=== PATIENT | male | born 1945 | race Caucasian/White ===

== ENCOUNTER 2017-07-17 03:54 | Inpatient (IN) | payer OTHER ==
[~2017-07-17] VITALS: Ht 182.9 cm; Wt 87.4 kg
[~2017-07-17 03:54] MED LIST: ASCO500 PO; ASPI81CH; ATOR40TA; ATOR40TA PO; Aldactone25 MG PO; CENTRUM ULTRA1 EAC1 PO; CEPH500 PO; CLON.1 PO; CLOP75 PO; Cinnamon500 MG PO; ENAL20; ENAL20 PO; FURO40; FURO40 PO; HYDACE5325 PO; LANS15EC; LEVFLO500 PO; METF500; METF500C PO; MULVITMINF PO; NIFE90ER; NIFE90ER PO; ODOR FREE GARL100 MG PO; OMEG1CAP30 PO; PANT40 PO; POTCHL20ER; PRED10 PO; Percocet 5-3251 EACH PO; SPIR25 PO; TIMOPTIC 0.5%1 EACH BOTHEYES; Vitamin B-121000 MCG PO; Xalatan2.5 ML BOTHEYES; ZIOPTAN 0.00151 EACH
[2017-07-17 05:08] LABS: BASOPHILS ABSOLUTE AUTO 0.05 K/mm3 (0.00-0.23); BASOPHILS PERCENT AUTO 0 % (0-2); EOSINOPHILS ABSOLUTE AUTO 0.02 K/mm3 (0.00-0.68); EOSINOPHILS PERCENT AUTO 0 % (0-6); Hematocrit 42.9 % (37.0-53.0); Hemoglobin 14.8 g/dL (13.5-17.5); IMMATURE GRAN ABSOLUTE AUTO 0.27 K/mm3 (0.00-0.10); IMMATURE GRAN PERCENT AUTO 1 % (0-1); LYMPHOCYTES PERCENT AUTO 7 % (21-46); MONOCYTES ABSOLUTE AUTO 1.88 K/mm3 (0.16-1.47); MONOCYTES PERCENT AUTO 8 % (4-13); Mean Corpuscular HGB 31.9 pg (26.0-34.0); Mean Corpuscular HGB Conc 34.5 g/dL (31.5-36.5); Mean Corpuscular Volume 93 fL (80-100); Mean Platelet Volume 10.1 fL (9.1-12.4); NEUTROPHILS PERCENT AUTO 84 % (41-73); Platelet Count 284 K/mm3 (150-400); RDW Coefficient Variation 12.5 % (11.7-14.2); RDW Standard Deviation 42.3 fL (35.1-46.3); Red Blood Cell Count 4.64 M/mm3 (4.30-5.90); White Blood Cell Count 23.92 K/mm3 (4.00-11.30)
[2017-07-17 05:55] LABS: CHOL/HDL RATIO 3.3; Cholesterol 124 mg/dL (50-200); HDL Cholesterol 38 mg/dL (>39); LDL/HDL RATIO 1.4; Low Density Lipoprotein Chol 55 mg/dL (0-110); Triglycerides 156 mg/dL (30-160); Very Low Density Lipoprot Chol 31 mg/dL (6-32)
[2017-07-17 06:08] LABS: Alanine Aminotransfer (ALT/SGP 60 U/L (12-78); Albumin, Blood 4.2 g/dL (3.4-5.0); Alk Phos 75 U/L (50-136); Anion Gap 9 mmol/L (6-16); Aspartate Aminotrans (AST/SGOT 23 U/L (12-37); Bilirubin, Total 0.8 mg/dL (0.1-1.0); Blood Urea Nitrogen 28 mg/dL (8-24); Bun/Creatinine Ratio 26.4 (12.0-20.0); CO2, Blood 25 mmol/L (21-32); Calcium, Blood 9.4 mg/dL (8.5-10.1); Chloride, Blood 106 mmol/L (98-108); Creatinine, Blood 1.06 mg/dL (0.60-1.20); Globulin, Blood 4.3 g/dL (2.2-4.0); Glomerular Filtration Rate >60 (60-); Glucose, Blood 159 mg/dL (70-99); Sodium, Blood 140 mmol/L (136-145); Total Protein, Blood 8.5 g/dL (6.4-8.2)
[2017-07-17 06:44] LABS: Source, Urine Clean Catch
[2017-07-17 06:50] LABS: Bilirubin, Urine Neg (Neg); Blood, Urine 3+ (Neg); Glucose Qualitative, Urine 1+ (Neg); Ketones, Urine 2+ (Neg); Leukocyte Esterase, Urine Neg (Neg); Nitrite, Urine Neg (Neg); Protein, Urine 1+ (Neg); Specific Gravity, Urine 1.025 (1.003-1.022); Urobilinogen, Urine NORM (Normal)
[2017-07-17 06:58] LABS: Appearance, Urine Clear (Clear); Color, Urine Yellow (P-Yellow)
[2017-07-17 07:00] LABS: Bacteria Not Seen /hpf; Red Blood Cells, Urine 0-2 /hpf (0-2); Squamous Epithelial Cells Not Seen /hpf (Few); White Blood Cells, Urine Not Seen /hpf (0-5)
[2017-07-18 05:31] LABS: BASOPHILS ABSOLUTE AUTO 0.02 K/mm3 (0.00-0.23); BASOPHILS PERCENT AUTO 0 % (0-2); EOSINOPHILS ABSOLUTE AUTO 0.01 K/mm3 (0.00-0.68); EOSINOPHILS PERCENT AUTO 0 % (0-6); Hematocrit 40.8 % (37.0-53.0); IMMATURE GRAN ABSOLUTE AUTO 0.21 K/mm3 (0.00-0.10); IMMATURE GRAN PERCENT AUTO 1 % (0-1); LYMPHOCYTES ABSOLUTE AUTO 1.84 K/mm3 (0.84-5.20); LYMPHOCYTES PERCENT AUTO 8 % (21-46); MONOCYTES ABSOLUTE AUTO 1.35 K/mm3 (0.16-1.47); MONOCYTES PERCENT AUTO 6 % (4-13); Mean Corpuscular HGB 31.7 pg (26.0-34.0); Mean Corpuscular HGB Conc 34.3 g/dL (31.5-36.5); Mean Corpuscular Volume 93 fL (80-100); NEUTROPHILS ABSOLUTE AUTO 19.13 K/mm3 (1.96-9.15); NEUTROPHILS PERCENT AUTO 85 % (41-73); RDW Coefficient Variation 13.1 % (11.7-14.2); RDW Standard Deviation 44.3 fL (35.1-46.3); Red Blood Cell Count 4.41 M/mm3 (4.30-5.90); White Blood Cell Count 22.56 K/mm3 (4.00-11.30)
[2017-07-18 05:33] LABS: Mean Platelet Volume 10.8 fL (9.1-12.4); Platelet Count 240 K/mm3 (150-400)
[2017-07-18 06:03] LABS: Alanine Aminotransfer (ALT/SGP 34 U/L (12-78); Albumin, Blood 3.3 g/dL (3.4-5.0); Albumin/Globulin Ratio 0.8 (0.8-1.8); Alk Phos 64 U/L (50-136); Anion Gap 9 mmol/L (6-16); Aspartate Aminotrans (AST/SGOT 23 U/L (12-37); Bilirubin, Total 0.8 mg/dL (0.1-1.0); Blood Urea Nitrogen 22 mg/dL (8-24); Bun/Creatinine Ratio 25.6 (12.0-20.0); CO2, Blood 24 mmol/L (21-32); Calcium, Blood 8.6 mg/dL (8.5-10.1); Chloride, Blood 107 mmol/L (98-108); Creatinine, Blood 0.86 mg/dL (0.60-1.20); Globulin, Blood 4.1 g/dL (2.2-4.0); Glomerular Filtration Rate >60 (60-); Glucose, Blood 152 mg/dL (70-99); Phosphorus, Blood 2.2 mg/dL (2.5-4.9); Potassium, Blood 3.8 mmol/L (3.5-5.5); Sodium, Blood 140 mmol/L (136-145); Total Protein, Blood 7.4 g/dL (6.4-8.2)
[2017-07-19 04:11] LABS: BASOPHILS ABSOLUTE AUTO 0.02 K/mm3 (0.00-0.23); BASOPHILS PERCENT AUTO 0 % (0-2); EOSINOPHILS ABSOLUTE AUTO 0.01 K/mm3 (0.00-0.68); EOSINOPHILS PERCENT AUTO 0 % (0-6); Hematocrit 36.1 % (37.0-53.0); Hemoglobin 12.1 g/dL (13.5-17.5); IMMATURE GRAN ABSOLUTE AUTO 0.28 K/mm3 (0.00-0.10); IMMATURE GRAN PERCENT AUTO 2 % (0-1); LYMPHOCYTES ABSOLUTE AUTO 1.52 K/mm3 (0.84-5.20); LYMPHOCYTES PERCENT AUTO 8 % (21-46); MONOCYTES PERCENT AUTO 6 % (4-13); Mean Corpuscular HGB 31.6 pg (26.0-34.0); Mean Corpuscular HGB Conc 33.5 g/dL (31.5-36.5); Mean Corpuscular Volume 94 fL (80-100); Mean Platelet Volume 10.8 fL (9.1-12.4); NEUTROPHILS ABSOLUTE AUTO 15.72 K/mm3 (1.96-9.15); NEUTROPHILS PERCENT AUTO 84 % (41-73); Platelet Count 242 K/mm3 (150-400); RDW Coefficient Variation 13.1 % (11.7-14.2); RDW Standard Deviation 45.2 fL (35.1-46.3); Red Blood Cell Count 3.83 M/mm3 (4.30-5.90); White Blood Cell Count 18.65 K/mm3 (4.00-11.30)
[2017-07-19 04:38] LABS: Anion Gap 10 mmol/L (6-16); Blood Urea Nitrogen 23 mg/dL (8-24); Bun/Creatinine Ratio 25.2 (12.0-20.0); CO2, Blood 24 mmol/L (21-32); Calcium, Blood 8.5 mg/dL (8.5-10.1); Chloride, Blood 108 mmol/L (98-108); Creatinine, Blood 0.91 mg/dL (0.60-1.20); Glomerular Filtration Rate >60 (60-); Glucose, Blood 161 mg/dL (70-99); Phosphorus, Blood 1.6 mg/dL (2.5-4.9); Potassium, Blood 3.2 mmol/L (3.5-5.5); Sodium, Blood 142 mmol/L (136-145)
[2017-07-20 05:04] LABS: BASOPHILS ABSOLUTE AUTO 0.02 K/mm3 (0.00-0.23); BASOPHILS PERCENT AUTO 0 % (0-2); EOSINOPHILS ABSOLUTE AUTO 0.03 K/mm3 (0.00-0.68); EOSINOPHILS PERCENT AUTO 0 % (0-6); Hematocrit 34.3 % (37.0-53.0); Hemoglobin 11.6 g/dL (13.5-17.5); IMMATURE GRAN ABSOLUTE AUTO 0.18 K/mm3 (0.00-0.10); IMMATURE GRAN PERCENT AUTO 1 % (0-1); LYMPHOCYTES ABSOLUTE AUTO 1.67 K/mm3 (0.84-5.20); LYMPHOCYTES PERCENT AUTO 11 % (21-46); MONOCYTES PERCENT AUTO 6 % (4-13); Mean Corpuscular HGB 31.1 pg (26.0-34.0); Mean Corpuscular HGB Conc 33.8 g/dL (31.5-36.5); Mean Corpuscular Volume 92 fL (80-100); Mean Platelet Volume 10.5 fL (9.1-12.4); NEUTROPHILS ABSOLUTE AUTO 12.87 K/mm3 (1.96-9.15); NEUTROPHILS PERCENT AUTO 82 % (41-73); Platelet Count 231 K/mm3 (150-400); RDW Coefficient Variation 12.9 % (11.7-14.2); RDW Standard Deviation 43.2 fL (35.1-46.3); Red Blood Cell Count 3.73 M/mm3 (4.30-5.90); White Blood Cell Count 15.77 K/mm3 (4.00-11.30)
[2017-07-20 05:23] LABS: Albumin, Blood 2.9 g/dL (3.4-5.0); Anion Gap 10 mmol/L (6-16); Blood Urea Nitrogen 18 mg/dL (8-24); Bun/Creatinine Ratio 23.5 (12.0-20.0); CO2, Blood 22 mmol/L (21-32); Calcium, Blood 8.6 mg/dL (8.5-10.1); Chloride, Blood 112 mmol/L (98-108); Creatinine, Blood 0.77 mg/dL (0.60-1.20); Glomerular Filtration Rate >60 (60-); Glucose, Blood 157 mg/dL (70-99); Phosphorus, Blood 1.7 mg/dL (2.5-4.9); Potassium, Blood 3.2 mmol/L (3.5-5.5); Sodium, Blood 144 mmol/L (136-145)
[2017-07-21 05:57] LABS: Anion Gap 8 mmol/L (6-16); Blood Urea Nitrogen 15 mg/dL (8-24); Bun/Creatinine Ratio 23.3 (12.0-20.0); CO2, Blood 23 mmol/L (21-32); Calcium, Blood 8.4 mg/dL (8.5-10.1); Chloride, Blood 111 mmol/L (98-108); Creatinine, Blood 0.64 mg/dL (0.60-1.20); Glomerular Filtration Rate >60 (60-); Glucose, Blood 155 mg/dL (70-99); Potassium, Blood 3.1 mmol/L (3.5-5.5); Sodium, Blood 142 mmol/L (136-145)
[2017-07-21] MEDS ORDERED: CREON DR 12,001 EACH PO (10:05)
== END 2017-07-21 13:05 | disposition home or self-care (01) | DRG 440 ==
LOC: ER 03:54 → MEDS 05:13
PROVIDERS: Emergency Medicine; Family Medicine; Internal Medicine
DX: K85.20 Alcohol induced acute pancreatitis without necrosis or infection (principal); E87.6 Hypokalemia; E11.9 Type 2 diabetes mellitus without complications; I10 Essential (primary) hypertension; M10.9 Gout, unspecified; H40.9 Unspecified glaucoma; I48.0 Paroxysmal atrial fibrillation; F10.20 Alcohol dependence, uncomplicated; D72.829 Elevated white blood cell count, unspecified; K21.9 Gastro-esophageal reflux disease without esophagitis; E78.5 Hyperlipidemia, unspecified; Z79.84 Long term (current) use of oral hypoglycemic drugs; Z79.02 Long term (current) use of antithrombotics/antiplatelets; Z79.899 Other long term (current) drug therapy; Z87.891 Personal history of nicotine dependence
CPT/HCPCS: 36415; 71046; 74176; 80048; 80053; 80061; 80069; 81001; 82947; 83690; 84100; 85025; 87040; 94762; 96361; 96374; 96375; 99285; J1650; J2405; J2543; J3010; J3480; J7030

== ENCOUNTER 2019-06-03 11:15 | Inpatient (IN) | payer OTHER ==
[~2019-06-03] VITALS: Ht 170.2 cm; Wt 85.7 kg
[~2019-06-03 11:15] MED LIST changes: -ATOR40TA PO; -Aldactone25 MG PO; +CREON DR 12,001 EACH PO; -ENAL20 PO; -METF500C PO; -NIFE90ER PO; -TIMOPTIC 0.5%1 EACH BOTHEYES; -Xalatan2.5 ML BOTHEYES
[2019-06-03 12:03] LABS: BASOPHILS ABSOLUTE AUTO 0.03 K/mm3 (0.00-0.23); BASOPHILS PERCENT AUTO 0 % (0-2); EOSINOPHILS ABSOLUTE AUTO 0.02 K/mm3 (0.00-0.68); EOSINOPHILS PERCENT AUTO 0 % (0-6); Hematocrit 46.7 % (37.0-53.0); Hemoglobin 15.4 g/dL (13.5-17.5); IMMATURE GRAN ABSOLUTE AUTO 0.04 K/mm3 (0.00-0.10); IMMATURE GRAN PERCENT AUTO 0 % (0-1); LYMPHOCYTES ABSOLUTE AUTO 0.73 K/mm3 (0.84-5.20); LYMPHOCYTES PERCENT AUTO 5 % (21-46); MONOCYTES ABSOLUTE AUTO 0.86 K/mm3 (0.16-1.47); MONOCYTES PERCENT AUTO 5 % (4-13); Mean Corpuscular HGB 31.2 pg (26.0-34.0); Mean Corpuscular Volume 95 fL (80-100); Mean Platelet Volume 9.9 fL (9.1-12.4); NEUTROPHILS ABSOLUTE AUTO 14.21 K/mm3 (1.96-9.15); NEUTROPHILS PERCENT AUTO 89 % (41-73); Platelet Count 250 K/mm3 (150-400); RDW Coefficient Variation 11.9 % (11.7-14.2); RDW Standard Deviation 41.6 fL (35.1-46.3); Red Blood Cell Count 4.94 M/mm3 (4.30-5.90); White Blood Cell Count 15.89 K/mm3 (4.00-11.30)
[2019-06-03 12:35] LABS: Troponin I <0.015 ng/mL (0.000-0.040)
[2019-06-03 12:38] LABS: Alanine Aminotransfer (ALT/SGP 34 U/L (12-78); Albumin, Blood 4.4 g/dL (3.4-5.0); Alk Phos 60 U/L (50-136); Anion Gap 10 mmol/L (6-16); Aspartate Aminotrans (AST/SGOT 26 U/L (12-37); Bilirubin, Total 0.4 mg/dL (0.1-1.0); Blood Urea Nitrogen 23 mg/dL (8-24); Bun/Creatinine Ratio 22.3 (12.0-20.0); CO2, Blood 23 mmol/L (21-32); Calcium, Blood 9.4 mg/dL (8.5-10.1); Chloride, Blood 106 mmol/L (98-108); Creatinine, Blood 1.03 mg/dL (0.60-1.20); Globulin, Blood 4.2 g/dL (2.2-4.0); Glomerular Filtration Rate >60 (60-); Glucose, Blood 182 mg/dL (70-99); Potassium, Blood 4.1 mmol/L (3.5-5.5); Sodium, Blood 139 mmol/L (136-145); Total Protein, Blood 8.6 g/dL (6.4-8.2)
[2019-06-03] MEDS ORDERED: Xalatan2.5 ML BOTHEYES (13:23)
[2019-06-03] MEDS ORDERED: CLOP75 PO (13:23)
[2019-06-03] MEDS ORDERED: ENAL20 PO (13:23)
[2019-06-03] MEDS ORDERED: RHOPRESSA2.5 ML BOTHEYES (13:25)
[2019-06-03] MEDS ORDERED: NIFE90ER PO (13:26)
[2019-06-03] MEDS ORDERED: PANT40 PO (13:26)
[2019-06-03] MEDS ORDERED: Aldactone25 MG PO (13:27)
[2019-06-03] MEDS ORDERED: CLON.1 PO (13:27)
[2019-06-03] MEDS ORDERED: ATOR40TA PO (13:27)
[2019-06-03] MEDS ORDERED: FURO40 PO (13:27)
[2019-06-03] MEDS ORDERED: TIMO.5OPSO BOTHEYES (13:28)
[2019-06-03] MEDS ORDERED: METF500C PO (13:28)
[2019-06-03] MEDS ORDERED: METFORMIN HCL500 M3 PO (13:30)
--- NOTE | 2019-06-03 17:55 | NUR ---
PT ARRIVED TO THE UNIT VIA WHEELCHAIR. PT ORIENTED TO THE ROOM. PT REPORTS ABDOMINAL PAIN, MEDICATED PER MAR.
--- NOTE | 2019-06-04 05:20 | NUR ---
SHIFT SUMMARY A/O, ABLE TO MAKE NEEDS KNOWN. BURNS PAIUTE. COOPERATIVE WITH CARE. CALLS AND ANSWERS QUESTIONS APPROPRIATELY. C/O PAIN/DISCOMFORT T/O NIGHT TO ABDOMEN; MEDICATED PER EMAR. LR RUNNING @ 125 ML/HR TO 22G IN R HAND WITHOUT COMPLICATION. MEDICATED FOR HTN OVERNIGHT PER EMAR. APPEARED TO REST MUCH OF SHIFT. INDEPENDENT TO BATHROOM. NO ACUTE CHANGES NOTED OVERNIGHT. BED IN LOWEST POSITION. CALL LIGHT AND BELONGINGS WITHIN REACH. WCTM. REPORT TO ONCOMING RN.
[2019-06-04 05:27] LABS: BASOPHILS ABSOLUTE AUTO 0.03 K/mm3 (0.00-0.23); BASOPHILS PERCENT AUTO 0 % (0-2); EOSINOPHILS PERCENT AUTO 0 % (0-6); Hemoglobin 16.6 g/dL (13.5-17.5); IMMATURE GRAN PERCENT AUTO 0 % (0-1); LYMPHOCYTES PERCENT AUTO 5 % (21-46); MONOCYTES ABSOLUTE AUTO 1.72 K/mm3 (0.16-1.47); MONOCYTES PERCENT AUTO 8 % (4-13); Mean Corpuscular HGB 31.4 pg (26.0-34.0); Mean Corpuscular HGB Conc 33.9 g/dL (31.5-36.5); Mean Corpuscular Volume 93 fL (80-100); NEUTROPHILS ABSOLUTE AUTO 19.59 K/mm3 (1.96-9.15); NEUTROPHILS PERCENT AUTO 87 % (41-73); Platelet Count 269 K/mm3 (150-400); RDW Coefficient Variation 12.3 % (11.7-14.2); RDW Standard Deviation 41.9 fL (35.1-46.3); Red Blood Cell Count 5.28 M/mm3 (4.30-5.90); White Blood Cell Count 22.54 K/mm3 (4.00-11.30)
[2019-06-04 05:48] LABS: Alanine Aminotransfer (ALT/SGP 35 U/L (12-78); Albumin, Blood 3.9 g/dL (3.4-5.0); Albumin/Globulin Ratio 0.9 (0.8-1.8); Alk Phos 61 U/L (50-136); Anion Gap 7 mmol/L (6-16); Aspartate Aminotrans (AST/SGOT 26 U/L (12-37); Bilirubin, Total 0.7 mg/dL (0.1-1.0); Blood Urea Nitrogen 21 mg/dL (8-24); Bun/Creatinine Ratio 23.4 (12.0-20.0); CO2, Blood 26 mmol/L (21-32); Calcium, Blood 9.1 mg/dL (8.5-10.1); Chloride, Blood 104 mmol/L (98-108); Globulin, Blood 4.2 g/dL (2.2-4.0); Glomerular Filtration Rate >60 (60-); Glucose, Blood 191 mg/dL (70-99); Magnesium, Blood 1.9 mg/dL (1.6-2.4); Phosphorus, Blood 2.5 mg/dL (2.5-4.9); Potassium, Blood 3.8 mmol/L (3.5-5.5); Sodium, Blood 137 mmol/L (136-145); Total Protein, Blood 8.1 g/dL (6.4-8.2)
--- NOTE | 2019-06-04 18:13 | NUR ---
SHIFT SUMMARY PT HAS HAD ABDOMINAL ALL SHIFT. THIS RN HAS BEEN MEDICATING FOR PAIN ALMOST EVERY 2 HOURS. NO COMPLAINTS OF NASUEA. PT HAD CT AND ULTRASOUND OF ABDOMEN TODAY. PT ALSO SLEEPING OFF AND ON. IVF INFUSING WITHOUT DIFFICULTY. NO ACUTE CHANGES. WAITING FOR ULTRASOUND RESULTS. CALL LIGHT IN REACH. WILL CONTINUE TO MONITOR FOR PAIN AND REPORT TO ONCOMING RN.
[2019-06-05 05:17] LABS: BASOPHILS ABSOLUTE AUTO 0.02 K/mm3 (0.00-0.23); BASOPHILS PERCENT AUTO 0 % (0-2); EOSINOPHILS PERCENT AUTO 0 % (0-6); Hematocrit 40.5 % (37.0-53.0); Hemoglobin 13.4 g/dL (13.5-17.5); IMMATURE GRAN ABSOLUTE AUTO 0.21 K/mm3 (0.00-0.10); IMMATURE GRAN PERCENT AUTO 1 % (0-1); LYMPHOCYTES ABSOLUTE AUTO 1.28 K/mm3 (0.84-5.20); LYMPHOCYTES PERCENT AUTO 6 % (21-46); MONOCYTES ABSOLUTE AUTO 1.49 K/mm3 (0.16-1.47); MONOCYTES PERCENT AUTO 8 % (4-13); Mean Corpuscular HGB 30.9 pg (26.0-34.0); Mean Corpuscular HGB Conc 33.1 g/dL (31.5-36.5); Mean Corpuscular Volume 93 fL (80-100); Mean Platelet Volume 10.1 fL (9.1-12.4); NEUTROPHILS ABSOLUTE AUTO 16.86 K/mm3 (1.96-9.15); NEUTROPHILS PERCENT AUTO 85 % (41-73); Platelet Count 192 K/mm3 (150-400); RDW Coefficient Variation 12.5 % (11.7-14.2); RDW Standard Deviation 42.8 fL (35.1-46.3); Red Blood Cell Count 4.34 M/mm3 (4.30-5.90); White Blood Cell Count 19.86 K/mm3 (4.00-11.30)
[2019-06-05 05:47] LABS: Albumin, Blood 3.3 g/dL (3.4-5.0); Anion Gap 7 mmol/L (6-16); Blood Urea Nitrogen 14 mg/dL (8-24); Bun/Creatinine Ratio 18.9 (12.0-20.0); CO2, Blood 26 mmol/L (21-32); Calcium, Blood 8.8 mg/dL (8.5-10.1); Chloride, Blood 104 mmol/L (98-108); Creatinine, Blood 0.74 mg/dL (0.60-1.20); Glomerular Filtration Rate >60 (60-); Glucose, Blood 161 mg/dL (70-99); Phosphorus, Blood 2.1 mg/dL (2.5-4.9); Potassium, Blood 3.4 mmol/L (3.5-5.5); Sodium, Blood 137 mmol/L (136-145)
--- NOTE | 2019-06-05 06:34 | NUR ---
SHIFT SUMMARY A/O, ABLE TO MAKE NEEDS KNOWN. COOPERATIVE WITH CARE. [place]. CALLS AND ANSWERS QUESTIONS APPROPRIATELY. C/O PAIN/DISCOMFORT TO ABDOMEN; MEDICATED PER EMAR. REMAINS FREE FROM C/O N/V. VSS/AFEBRILE. CONTINUES TO RUN LR TO R HAND W/O COMPLICATIONS. STATED HAD NOT BEEN ABLE TO REST MUCH T/O STAY; ALERTED ON-CALL PROVIDER, NEW ORDER FOR MELATONIN. VSS/AFEBRILE. NO ACUTE CHANGES NOTED OVERNIGHT. BED IN LOWEST POSITION. CALL LIGHT AND BELONGINGS WITHIN REACH. WCTM. REPORT TO ONCOMING RN.
--- NOTE | 2019-06-05 18:13 | NUR ---
SHIFT SUMMARY. A&OX4, INDEPENDENT IN ROOM. PT CONTINUES WITH LUQ ABD PAIN THAT HAS BEEN MANAGED WELL WITH CURRENT ORDERS. PT REPORTS PAIN IS IMPROVED WHEN COMPARED TO YESTERDAY. NO N/V. NO NEW CHANGES OR CONCERNS.
--- NOTE | 2019-06-06 04:37 | NUR ---
SHIFT SUMMARY: TEMP 100.8. PT STATES HE DOES NOT FEEL FEVERISH. CONT W/ABD PAIN BUT STATES IT IS IMPROVING. ANALGESICS HELPFUL. BACK PAIN IS FROM HOSPITAL BED PER PT. MOOD IS PLEASANT AND POSITIVE. CONT NPO STATUS. IV FLUIDS CONTINUOUSLY. INDEPENDENT IN ROOM. NO ACUTE CHANGES OVERNIGHT. WILL CONT TO MONITOR.
[2019-06-06 05:53] LABS: BASOPHILS ABSOLUTE AUTO 0.01 K/mm3 (0.00-0.23); BASOPHILS PERCENT AUTO 0 % (0-2); EOSINOPHILS ABSOLUTE AUTO 0.06 K/mm3 (0.00-0.68); EOSINOPHILS PERCENT AUTO 1 % (0-6); Hematocrit 39.1 % (37.0-53.0); Hemoglobin 12.9 g/dL (13.5-17.5); IMMATURE GRAN ABSOLUTE AUTO 0.04 K/mm3 (0.00-0.10); IMMATURE GRAN PERCENT AUTO 0 % (0-1); LYMPHOCYTES ABSOLUTE AUTO 0.94 K/mm3 (0.84-5.20); LYMPHOCYTES PERCENT AUTO 8 % (21-46); MONOCYTES ABSOLUTE AUTO 0.75 K/mm3 (0.16-1.47); MONOCYTES PERCENT AUTO 7 % (4-13); Mean Corpuscular HGB 31.1 pg (26.0-34.0); Mean Corpuscular Volume 94 fL (80-100); Mean Platelet Volume 10.3 fL (9.1-12.4); NEUTROPHILS ABSOLUTE AUTO 9.56 K/mm3 (1.96-9.15); NEUTROPHILS PERCENT AUTO 84 % (41-73); Platelet Count 156 K/mm3 (150-400); RDW Coefficient Variation 12.5 % (11.7-14.2); RDW Standard Deviation 43.6 fL (35.1-46.3); Red Blood Cell Count 4.15 M/mm3 (4.30-5.90); White Blood Cell Count 11.36 K/mm3 (4.00-11.30)
[2019-06-06 06:12] LABS: Albumin, Blood 2.7 g/dL (3.4-5.0); Anion Gap 7 mmol/L (6-16); Blood Urea Nitrogen 18 mg/dL (8-24); Bun/Creatinine Ratio 21.7 (12.0-20.0); CO2, Blood 24 mmol/L (21-32); Calcium, Blood 8.5 mg/dL (8.5-10.1); Chloride, Blood 107 mmol/L (98-108); Creatinine, Blood 0.83 mg/dL (0.60-1.20); Glomerular Filtration Rate >60 (60-); Glucose, Blood 142 mg/dL (70-99); Phosphorus, Blood 1.9 mg/dL (2.5-4.9); Potassium, Blood 3.4 mmol/L (3.5-5.5); Sodium, Blood 138 mmol/L (136-145)
--- NOTE | 2019-06-06 09:31 | NUR ---
CLONIDINE HELD BP 108/52 HR 82, PER DR. LEON, CLONIDINE HELD THIS AM.
--- NOTE | 2019-06-06 17:21 | NUR ---
Shift Summary A/Ox3, pleasant and cooperative with care, though hard of hearing. Patient had a shower today, independent in room. Ambulated in hallway x 1. No complaints of abdominal pain except for back pain, encouraged to continue ambulating. Pt seems to be tolerating Clear liquids well, blood sugars did not require coverage during this shift. No other acute concerns.
--- NOTE | 2019-06-07 04:58 | NUR ---
SHIFT SUMMARY: TEMP 101.6 INITIALLY THEN 99.6. PT ROOM VERY WARM. AGREEABLE TO REDUCING ROOM TEMP. DIFFICULTY SLEEPING TONIGHT DESPITE MELATONIN AT HS. STATES ABD PAIN IS STILL PRESENT BUT NO LONGER WANTING PAIN MEDS. UP AMBULATING AROUND HALLS INDEPENDENTLY TO RELIEVE BACK DISCOMFORT. APPEARS TO BE SLEEPING AT THIS TIME, RESTING QUIETLY IN BED. TOLERATING CLEAR LIQUIDS WITHOUT N/V. ABD ROUND, DISTENDED, FIRM. PT STATES HE FEELS BLOATED, IS PASSING FLATUS AND SMALL LIQUID STOOLS. WILL CONT TO MONITOR.
[2019-06-07 05:07] LABS: BASOPHILS ABSOLUTE AUTO 0.01 K/mm3 (0.00-0.23); BASOPHILS PERCENT AUTO 0 % (0-2); EOSINOPHILS ABSOLUTE AUTO 0.07 K/mm3 (0.00-0.68); EOSINOPHILS PERCENT AUTO 1 % (0-6); Hematocrit 36.4 % (37.0-53.0); IMMATURE GRAN ABSOLUTE AUTO 0.02 K/mm3 (0.00-0.10); IMMATURE GRAN PERCENT AUTO 0 % (0-1); LYMPHOCYTES ABSOLUTE AUTO 0.86 K/mm3 (0.84-5.20); LYMPHOCYTES PERCENT AUTO 12 % (21-46); MONOCYTES ABSOLUTE AUTO 0.78 K/mm3 (0.16-1.47); MONOCYTES PERCENT AUTO 11 % (4-13); Mean Corpuscular HGB 30.7 pg (26.0-34.0); Mean Corpuscular Volume 93 fL (80-100); NEUTROPHILS ABSOLUTE AUTO 5.62 K/mm3 (1.96-9.15); NEUTROPHILS PERCENT AUTO 76 % (41-73); Platelet Count 154 K/mm3 (150-400); RDW Coefficient Variation 12.5 % (11.7-14.2); RDW Standard Deviation 43.4 fL (35.1-46.3); Red Blood Cell Count 3.91 M/mm3 (4.30-5.90); White Blood Cell Count 7.36 K/mm3 (4.00-11.30)
--- NOTE | 2019-06-07 11:31 | NUR ---
FULL LIQUID PER DR. LEON, ADVANCE DIET FROM CLEAR TO FULL LIQUID
[2019-06-07] MEDS ORDERED: ONDA4ODT MM (14:22)
[2019-06-07] MEDS ORDERED: TRAM50 PO (14:23)
--- NOTE | 2019-06-07 14:48 | NUR ---
Discharge Summary A/Ox3, patient discharge to home. Discharge paperwork reviewed with patient with daughter at bedside. Education provided on medications. Meds faxed to preferred pharmacy and hard script given to patient. Patient declined to be escorted via w/c, ambulatory status is independent. Transported home via personal vehicle by daughter. IV removed. Personal belongings sent home.
== END 2019-06-07 14:55 | disposition home or self-care (01) | DRG 440 ==
LOC: ER 11:15 → MEDS 13:57 → ENPENDDIS 06-07 14:24 → MEDS 06-07 14:55
PROVIDERS: Emergency Medicine; Family Medicine; Nurse Practitioner Acute Care; ADMIT Family Medicine
DX: K85.91 Acute pancreatitis with uninfected necrosis, unspecified (principal); I16.0 Hypertensive urgency; E11.9 Type 2 diabetes mellitus without complications; E87.6 Hypokalemia; E83.39 Other disorders of phosphorus metabolism; K21.9 Gastro-esophageal reflux disease without esophagitis; I73.9 Peripheral vascular disease, unspecified; M10.9 Gout, unspecified; I10 Essential (primary) hypertension; C61 Malignant neoplasm of prostate; F10.21 Alcohol dependence, in remission; Z87.891 Personal history of nicotine dependence
CPT/HCPCS: 36415; 74160; 76705; 80053; 80069; 82947; 83690; 83735; 84100; 84484; 85025; 93005; 93010; 96374; 96375; 99285-25; A9270-GY; A9581; C9113; J0360; J1650; J2405; J3010; J7060; J7120

== ENCOUNTER 2020-02-05 09:28 | Day surgery (SDC) | payer OTHER ==
[~2020-02-05] VITALS: Ht 170.2 cm; Wt 80.6 kg
[~2020-02-05 09:28] MED LIST changes: +ATOR40TA PO; +Aldactone25 MG PO; +ENAL20 PO; +METF500C PO; +METFORMIN HCL500 M3 PO; +NIFE90ER PO; +ONDA4ODT MM; +RHOPRESSA2.5 ML BOTHEYES; +TIMO.5OPSO BOTHEYES; +TRAM50 PO; +Xalatan2.5 ML BOTHEYES
--- NOTE | 2020-02-05 11:14 | NUR ---
02/05/20 1114 Franny Nichole CHANGE OF SCOPE TO PEDIATRIC AND RESTART AT 1042
== END 2020-02-05 11:41 | disposition home or self-care (01) ==
LOC: ORSCSDS 09:28
PROVIDERS: Internal Medicine Gastroenterology
PROC: 0DJD8ZZ Inspection of Lower Intestinal Tract, Via Natural or Artificial Opening Endoscopic (ICD-10-PCS; principal; 2020-02-05 11:00)
DX: Z12.11 Encounter for screening for malignant neoplasm of colon (principal); Z86.010 Personal history of colon polyps; K57.30 Diverticulosis of large intestine without perforation or abscess without bleeding; K64.8 Other hemorrhoids; K76.0 Fatty (change of) liver, not elsewhere classified; E78.5 Hyperlipidemia, unspecified; I10 Essential (primary) hypertension; E11.9 Type 2 diabetes mellitus without complications; Z87.11 Personal history of peptic ulcer disease; Z87.891 Personal history of nicotine dependence; Z79.84 Long term (current) use of oral hypoglycemic drugs; Z79.899 Other long term (current) drug therapy
CPT/HCPCS: 82947; J2704; J7120

== ENCOUNTER 2020-06-17 09:29 | Emergency (ER) | payer OTHER ==
[~2020-06-17] VITALS: Ht 172.7 cm; Wt 83.9 kg
[2020-06-17 10:57] LABS: Source, Urine Clean Catch
[2020-06-17 11:00] LABS: Appearance, Urine Clear (Clear); Bilirubin, Urine Neg (Neg); Blood, Urine 5+ (Neg); Color, Urine Yellow (P-Yellow); Glucose Qualitative, Urine Neg (Neg); Ketones, Urine Neg (Neg); Leukocyte Esterase, Urine Neg (Neg); Nitrite, Urine Neg (Neg); Protein, Urine Neg (Neg); Specific Gravity, Urine 1.015 (1.003-1.022); Urobilinogen, Urine NORM (Normal)
[2020-06-17 11:20] LABS: Bacteria Rare /hpf; Red Blood Cells, Urine 25-50 /hpf (0-2); Squamous Epithelial Cells Rare /hpf (Few); White Blood Cells, Urine 0-2 /hpf (0-5)
[2020-06-17] MEDS ORDERED: Flomax0.4 MG PO (11:33)
== END 2020-06-17 12:26 | disposition other institution (70) ==
LOC: ER 09:29
PROVIDERS: Physician Assistant
DX: R33.9 Retention of urine, unspecified (principal); R10.30 Lower abdominal pain, unspecified; I10 Essential (primary) hypertension; K21.9 Gastro-esophageal reflux disease without esophagitis; E11.51 Type 2 diabetes mellitus with diabetic peripheral angiopathy without gangrene; Z87.891 Personal history of nicotine dependence; Z79.02 Long term (current) use of antithrombotics/antiplatelets; Z79.84 Long term (current) use of oral hypoglycemic drugs; Z79.899 Other long term (current) drug therapy
CPT/HCPCS: 51702; 81001; 99283-25

== ENCOUNTER 2021-08-12 15:52 | Inpatient (IN) | payer OTHER ==
[~2021-08-12] VITALS: Ht 167.6 cm; Wt 82.0 kg
[~2021-08-12 15:52] MED LIST changes: +Flomax0.4 MG PO
[2021-08-12 16:52] LABS: BASOPHILS ABSOLUTE AUTO 0.02 K/mm3 (0.00-0.23); BASOPHILS PERCENT AUTO 0 % (0-2); EOSINOPHILS ABSOLUTE AUTO 0.03 K/mm3 (0.00-0.68); EOSINOPHILS PERCENT AUTO 0 % (0-6); Hematocrit 39.3 % (37.0-53.0); Hemoglobin 13.2 g/dL (13.5-17.5); IMMATURE GRAN ABSOLUTE AUTO 0.05 K/mm3 (0.00-0.10); IMMATURE GRAN PERCENT AUTO 0 % (0-1); LYMPHOCYTES ABSOLUTE AUTO 0.73 K/mm3 (0.84-5.20); LYMPHOCYTES PERCENT AUTO 5 % (21-46); MONOCYTES ABSOLUTE AUTO 0.73 K/mm3 (0.16-1.47); MONOCYTES PERCENT AUTO 5 % (4-13); Mean Corpuscular HGB 31.5 pg (26.0-34.0); Mean Corpuscular HGB Conc 33.6 g/dL (31.5-36.5); Mean Corpuscular Volume 94 fL (80-100); Mean Platelet Volume 10.3 fL (9.1-12.4); NEUTROPHILS PERCENT AUTO 90 % (41-73); Platelet Count 243 K/mm3 (150-400); RDW Coefficient Variation 12.2 % (11.7-14.2); RDW Standard Deviation 42.1 fL (35.1-46.3); Red Blood Cell Count 4.19 M/mm3 (4.30-5.90); White Blood Cell Count 14.86 K/mm3 (4.00-11.30)
[2021-08-12 17:07] LABS: Albumin, Blood 3.9 g/dL (3.4-5.0); Bilirubin, Total 0.6 mg/dL (0.1-1.0); Bun/Creatinine Ratio 19.5 (12.0-20.0); Creatinine, Blood 0.87 mg/dL (0.60-1.20); Globulin, Blood 4.1 g/dL (2.2-4.0); Potassium, Blood 3.2 mmol/L (3.5-5.5)
[2021-08-13 05:01] LABS: Albumin/Globulin Ratio 0.8 (0.8-1.8); Bilirubin, Total 0.5 mg/dL (0.1-1.0); Bun/Creatinine Ratio 16.3 (12.0-20.0); Creatinine, Blood 0.86 mg/dL (0.60-1.20); Globulin, Blood 3.6 g/dL (2.2-4.0); Potassium, Blood 3.2 mmol/L (3.5-5.5); Total Protein, Blood 6.6 g/dL (6.4-8.2)
--- NOTE | 2021-08-13 06:33 | NUR ---
SHIFT SUMMARY PT WAS A NEW ADMIT DURING THE NIGHT, ARRIVING ON THE FLOOR AT 2030. HE WAS ADMITTED FOR PANCREATITIS. A&O X 4, SBA IN THE ROOM. PT HAS DENIED ANY ABD PAIN SINCE ARRIVING ON THE FLOOR, AND SLEPT WELL THROUGH THE NIGHT. VITAL BP ELEVATED IN THE 150-160S SYSTOLIC. VITAL SIGNS OTHERWISE STABLE. PT RECEIVING NS @ 100 ML/HR. NO OTHER ACUTE CHANGES IN PT CONDITION NOTED SINCE ADMISSION. WILL CONTINUE TO MONITOR AND TREAT PER EMAR UNTIL HAND OFF TO DAY SHIFT RN.
[2021-08-13 08:26] LABS: Triglycerides 87 mg/dL (30-160)
--- NOTE | 2021-08-13 20:24 | NUR ---
SUMMARY- PT A/O X4, INDEPENDANT IN ROOM WITH OCC ASSIST WITH IV POLE. TOLERATING FOOD, ADAT TO GENERAL DINNER AND STATES ONLY MILD CRAMPING WITH PO INTAKE. DENIES NAUSEA AND VOMITING. PT SHOWERED TODAY. VOIDING IN URINAL. HAD DILAUDID 1MG THIS AM FOR PAIN. REPORT TO KAIA BACA.
[2021-08-14 05:34] LABS: Albumin, Blood 2.8 g/dL (3.4-5.0); Anion Gap 6 mmol/L (6-16); Blood Urea Nitrogen 9 mg/dL (8-24); Bun/Creatinine Ratio 11.3 (12.0-20.0); CO2, Blood 27 mmol/L (21-32); Calcium, Blood 8.3 mg/dL (8.5-10.1); Chloride, Blood 106 mmol/L (98-108); Glomerular Filtration Rate 91 (60-); Glucose, Blood 118 mg/dL (70-99); Phosphorus, Blood 2.1 mg/dL (2.5-4.9); Potassium, Blood 3.3 mmol/L (3.5-5.5); Sodium, Blood 139 mmol/L (136-145)
--- NOTE | 2021-08-14 06:51 | NUR ---
PT A & OX4. LOW FAT DIET. FULL CODE. INDEPENDANT. V/S WNL. PRN FENTANYL GIVEN TWICE FOR PAIN PER EMAR. VOIDS W/O DIFFICULTY. NO BM THIS SHIFT. WILL CONTINUE TO MONITOR.
--- NOTE | 2021-08-14 13:01 | NUR ---
Upon recieving a spiritual care referral, I visit pt. Patient is lying in bed and alert. Patient tells me about his "pancreas flare-ups" and how he feels like no dietary adjustments are needed on his end. He feels he has done his best and it is "just one of those things that happen." Patient also admits to struggling emotionally for the last 7 yrs since his of cancer. He claims no amish beliefs and is contemplating moving to the [facility] where his son has a house. His son and his family are living in [facility] for a season. He has not seen his son in 3 yrs. He sees his dtr more often. She lives in [place], I believe that is what pt said. Patient states that he has had very little motivation to do activities that he enjoys since his . I normalize pt's experience, encourage self-care, explore sources of meaning and purpose and provide therapeutic listening, and a calming presence. Pt responds well and shows signs of an elevated mood. I will continue to remain available to patient and family.
--- NOTE | 2021-08-14 14:35 | NUR ---
SHIFT SUMMARY PT AWAKE AT START OF SHIFT, DURING SHIFT REPORT, RESTING QUIETLY WATCHING TV. PT IS A&O, PLEASANT AND CO-OP. ADMITTED FOR PANCREATITIS. PER REPORT, PT IMPROVING. NO C/O PAIN, OR N/V. SOME TENDERNESS REPORTED TO LLQ. DENIED NEEDING ANYTHING FOR PAIN TO PRESENT TODAY. IV SITE NO LONGER PATENT. DR KNOX HERE TO SEE PT. OK TO LEAVE IV OUT. MEDS CHANGED TO PO. PT TO STAY ONE MORE DAY AND POSSIBLE D/C TOMORROW. DIET TO REMAIN LOW FAT. PT REPORTED TOLERATING WELL. SEVERAL VISITORS IN AND OUT TODAY. UP INDEPENDENTLY TO BTHRM NEEDED. DENIED FURTHER NEEDS AT THIS TIME. CALL LT IN REACH.
--- NOTE | 2021-08-14 18:15 | NUR ---
PT WAS AWAKE AT THE BEGINNING OF THE SHIFT. PT LABS CAME BACK WITH POTASSIUM OF 3.3L. DR. KNOX ORDERED IV POTASSIUM INFUSION. PT LEFT AC IV BECAME INFLATRATED AND INFUSION WAS STOPPED. DR. KNOX ORDERED PO MEDICATION INSTEAD OF IV. PT IS ABLE TO TOLERATED MEALS AND PO MEDICATIONS WELL. PT LEFT AC IV WAS DISCONTINUED. PT HAD NO COMPLIANTS OF ABDOMENIAL PAIN THROUGHOUT SHIFT. PT IS PLANNED TO DISCHARGE HOME. PT REQUESTED A SHOWER AFTER DINNER. PT HAD FREINDS VISITING THROUGHOUT THE SHIFT.
[2021-08-15 04:57] LABS: Calcium, Blood 8.7 mg/dL (8.5-10.1); Creatinine, Blood 0.88 mg/dL (0.60-1.20); Potassium, Blood 3.3 mmol/L (3.5-5.5)
--- NOTE | 2021-08-15 05:01 | NUR ---
PT A & OX4. V/S WNL. LOW FAT DIET. NO IV ACCESS. INDEPEDANT IN ROOM. PT HAD A SHOWER. PT VOIDS W/O DIFFICULTY. NO BM THIS SHIFT. PRN NORCO GIVEN FOR PAIN PER EMAR. WILL CONTINUE TO MONITOR.
--- NOTE | 2021-08-15 14:28 | NUR ---
PT AWAKE AT START OF SHIFT, WAITING TO GO HOME. PT UP INDEPENDENTLY IN AND TO [facility]. TOLERATING LOW FAT DIET. DR KNOX HERE TO SEE PT, DISCUSSED PLAN OF CARE. DIET CHANGED TO FULL LIQUID FOR LUNCH. PT TO D/C HOME AFTER LUNCH, IF ABLE TO TOLERATE FL DIET. PT AGREEABLE AND DOING WELL. NO C/O N/V OR PAIN AGAIN TODAY. VISITOR TO EARLY FOR A WHILE. D/C ORDERS PLACED AND REVIEWED WITH PT. PT VERBALIZED UNDERSTANDING. FRIEND HERE TO TAKE PT HOME. PT DECLINED W/C AND REQUESTED TO WALK.
--- NOTE | 2021-08-15 17:02 | NUR ---
PT AWAKE AND READY TO BE DISCHARGED. PT POTASSIUM LEVELS WERE 3.3L, DR. KNOX ORDERED K-DUR 40 mEq. PT HAD NO COMPLAINS OF PAIN AND FELT READY TO BE DISCHARGED. PT TOK A SHOWER AFTER BREAKFAST AND GOT HIMSELF DRESSED. PT WAS DISCHARGHED WITH NO NEW MEDICATIONS. PT PCP OFFICE WILL CONTACT PT 08/16/21. PT TO FOLLOW UP WITH GASTROLOGIST. PT IS TO FOLLOW FULL LIQUID DIET, ADVANCE TO SOFT DIET AND THAN REGULAR DIET. PT WAS ESCORTED OUT WITH HIS FRIEND ON FOOT TO GROUND FLOOR FOR TRANSPORTATION HOME.
== END 2021-08-15 12:35 | disposition home or self-care (01) | DRG 439 ==
LOC: ER 15:52 → MEDS 20:49
PROVIDERS: Internal Medicine; Physician Assistant; ADMIT Hospitalist
DX: K85.90 Acute pancreatitis without necrosis or infection, unspecified (principal); E87.1 Hypo-osmolality and hyponatremia; Z51.5 Encounter for palliative care; E87.6 Hypokalemia; I10 Essential (primary) hypertension; M10.9 Gout, unspecified; R77.8 Other specified abnormalities of plasma proteins; E78.5 Hyperlipidemia, unspecified; K21.9 Gastro-esophageal reflux disease without esophagitis; E11.51 Type 2 diabetes mellitus with diabetic peripheral angiopathy without gangrene; Z85.46 Personal history of malignant neoplasm of prostate; Z87.11 Personal history of peptic ulcer disease; Z98.890 Other specified postprocedural states; Z87.891 Personal history of nicotine dependence; Z79.84 Long term (current) use of oral hypoglycemic drugs; Z79.899 Other long term (current) drug therapy
CPT/HCPCS: 36415; 74177; 80048; 80053; 80069; 83690; 83880; 84478; 84484; 85025; 93005; 93010; 96374; 96375; 96376; 99285-25; A9270; J1170; J2405; J3010; J3480; J7030; J7060; Q9967

== ENCOUNTER 2022-05-20 09:04 | Inpatient (IN) | payer OTHER ==
[~2022-05-20] VITALS: Ht 170.2 cm; Wt 78.8 kg
[~2022-05-20 09:04] MED LIST changes: -ENAL20 PO; +Enalapril Malea20 MG PO; +LATA.005SO BOTHEYES; -Xalatan2.5 ML BOTHEYES
[2022-05-20 09:46] LABS: BASOPHILS ABSOLUTE AUTO 0.04 K/mm3 (0.00-0.23); BASOPHILS PERCENT AUTO 0 % (0-2); EOSINOPHILS ABSOLUTE AUTO 0.27 K/mm3 (0.00-0.68); EOSINOPHILS PERCENT AUTO 2 % (0-6); Hematocrit 38.3 % (37.0-53.0); Hemoglobin 12.6 g/dL (13.5-17.5); IMMATURE GRAN ABSOLUTE AUTO 0.04 K/mm3 (0.00-0.10); IMMATURE GRAN PERCENT AUTO 0 % (0-1); LYMPHOCYTES ABSOLUTE AUTO 1.16 K/mm3 (0.84-5.20); LYMPHOCYTES PERCENT AUTO 7 % (21-46); MONOCYTES ABSOLUTE AUTO 1.26 K/mm3 (0.16-1.47); MONOCYTES PERCENT AUTO 8 % (4-13); Mean Corpuscular HGB 31.3 pg (26.0-34.0); Mean Corpuscular HGB Conc 32.9 g/dL (31.5-36.5); Mean Corpuscular Volume 95 fL (80-100); Mean Platelet Volume 10.2 fL (9.1-12.4); NEUTROPHILS ABSOLUTE AUTO 13.35 K/mm3 (1.96-9.15); NEUTROPHILS PERCENT AUTO 83 % (41-73); Platelet Count 243 K/mm3 (150-400); RDW Coefficient Variation 12.8 % (11.7-14.2); RDW Standard Deviation 43.8 fL (35.1-46.3); Red Blood Cell Count 4.03 M/mm3 (4.30-5.90); White Blood Cell Count 16.12 K/mm3 (4.00-11.30)
[2022-05-20 10:11] LABS: Alanine Aminotransfer (ALT/SGP 31 U/L (12-78); Alk Phos 62 U/L (50-136); Anion Gap 5 mmol/L (6-16); Aspartate Aminotrans (AST/SGOT 24 U/L (12-37); Bilirubin, Total 0.5 mg/dL (0.1-1.0); Blood Urea Nitrogen 50 mg/dL (8-24); Bun/Creatinine Ratio 43.5 (12.0-20.0); CO2, Blood 27 mmol/L (21-32); Calcium, Blood 9.7 mg/dL (8.5-10.1); Chloride, Blood 108 mmol/L (98-108); Creatinine, Blood 1.15 mg/dL (0.60-1.20); Globulin, Blood 4.1 g/dL (2.2-4.0); Glomerular Filtration Rate 65 (60-); Glucose, Blood 170 mg/dL (70-99); Potassium, Blood 4.2 mmol/L (3.5-5.5); Sodium, Blood 140 mmol/L (136-145); Total Protein, Blood 8.1 g/dL (6.4-8.2)
[2022-05-20 12:20] LABS: Source, Urine Clean Catch
[2022-05-20 12:27] LABS: Appearance, Urine Clear (Clear); Bilirubin, Urine Neg (Neg); Blood, Urine Neg (Neg); Glucose Qualitative, Urine Neg (Neg); Ketones, Urine Neg (Neg); Leukocyte Esterase, Urine Neg (Neg); Nitrite, Urine Neg (Neg); Protein, Urine Neg (Neg); Specific Gravity, Urine 1.015 (1.003-1.022); Urobilinogen, Urine NORM (Normal)
[2022-05-20 12:28] LABS: Color, Urine Pale Yellow (P-Yellow)
--- NOTE | 2022-05-20 13:41 | NUR ---
PT ARRIVED TO THE MEDICAL FLOOR VIA WHEELCHAIR. A/OX4. PLEASANT AND COOPERATIVE. PT ORIENTED TO THE ROOM LAYOUT AND CALL SYSTEM. CALL LIGHT IN REACH. FAMILY AT THE BEDSIDE
[2022-05-20] MEDS ORDERED: FUROSEMIDE40 MG PO (17:41)
[2022-05-20] MEDS ORDERED: SPIR25 PO (17:41)
[2022-05-20] MEDS ORDERED: TAMS.4ER PO (17:43)
--- NOTE | 2022-05-21 05:12 | NUR ---
SHIFT SUMMERY. PT RESTING IN BED, PT SEEMED TO SLEEP FAIRLY WELL DURING NIGHT. PT MEDICATED AND STATED PSIN SEMED BETTER AT THIS TIME.
[2022-05-21 05:17] LABS: Bun/Creatinine Ratio 31.7 (12.0-20.0); Calcium, Blood 8.6 mg/dL (8.5-10.1); Creatinine, Blood 0.95 mg/dL (0.60-1.20); Potassium, Blood 3.8 mmol/L (3.5-5.5)
--- NOTE | 2022-05-21 05:27 | NUR ---
SHIFT ENDING NOTE PT RESTED MOST OF THE NIGHT, PT REPORTS THIS AM THAT PAIN SEEMES TO BE BETTER THAN IT WAS LAST NOC. CALL LIGHT IN REACH.
--- NOTE | 2022-05-21 14:45 | NUR ---
PAIN AFTER EATING PT DRANK CLEAR LIQUID CHICKEN BROTH AND ORANGE JELLO. HE CALLED AND ASKED FOR PAIN MEDICATION D/T INCREASE IN ABD CRAMPING. NO NAUSEA OR BLOATING. JUST MORE PAIN. FENTAYL 50 MCG GIVEN. CONTINUE POC.
--- NOTE | 2022-05-21 15:59 | NUR ---
EVENING NOTE PT RESTING QUIETLY AFTER TRANSFER. LIKES HER BEDSIDE FAN ON. RESP EVEN AND UNALBORED. 3L N/C HUMIDIFIED OXYGEN. DEEP CONGESTED COUGH OF THICK, YELLOW SPUTUM. SHE SPITS THE SPUTUM INTO AN EMESIS BAG WITH KLEENEX. VSS. MOLINA PATENT-URINE VERNON, CLEAR. DENIED DISCOMFORT. 1 ASSIST TO TURN SIDE TO SIDE. ENCOURAGED TO DRINK. SHE LIKES ICE WATER. CONTINUE POC.
--- NOTE | 2022-05-21 16:03 | NUR ---
EVENING NOTE PT ALERT AND ORIENTED. VISITING WITH FAMILY. STARTED CLEAR LIQUID DIET FOR LUNCH. HE STATED THAT HIS ABD PAIN INCREASED AFTER DRINKING. MEDICATED WITH FENTAYL 50 MCG X1. FENTAYL WAS EFFECTIVE FOR THE CRAMPY/SPASM LIKE PAIN. NO NAUSEA/EMESIS. PT DID STATE THAT HIS PAIN WAS BETTER THAN YESTERDAY. UP TO BATHROOM AD ASHISH. REMOVED SCD'S PER PT REQUEST. PT DID RECEIVED LOVENOX DVT THIS MORNING. CONTINUE POC
--- NOTE | 2022-05-21 18:06 | NUR ---
DINNER CLEAR LIQUID DINNER. PT WANTED TO TRY TEA AND CHICKEN BROTH. AFTER DRINKING THE BROTH HIS STOMACH STARTED TO HURT. STOPPED BEFORE DRINKING THE TEA. NO NAUSEA. CONTINUE POC.
--- NOTE | 2022-05-22 03:22 | NUR ---
PHOTOGRAPHIC PRINTER SUMMARY NO ACUTE EVENTS THROUGHOUT THE NIGHT. A&OX4. [place]. PATIENT EFFECTIVELY COMMUNICATES NEEDS. VSS. RR EVEN AND UNLABORED ON RA. PATIENT IS TOLERATING ICE CHIPS ONLY AT THIS TIME. PAIN ASSESSED AND MEDICATED PER EMAR. BED LOW AND LOCKED. CALL LIGHT WITHIN REACH. THIS RN WILL CONTINUE TO MONITOR.
[2022-05-22 06:52] LABS: CHOL/HDL RATIO 2.6; Cholesterol 100 mg/dL (50-200); HDL Cholesterol 38 mg/dL (>39); LDL/HDL RATIO 1.1; Low Density Lipoprotein Chol 42 mg/dL (0-110); Triglycerides 101 mg/dL (30-160); Very Low Density Lipoprot Chol 20 mg/dL (6-32)
--- NOTE | 2022-05-22 17:05 | NUR ---
EVENING NOTE PT AWKAE AND ALERT. NPO AGAIN D/T INCREASED ABD PAIN AFTER DRINKING BROTH. LR AT 75 ML/HR INFUSING. PT AGREED TO A POWER GLIDE D/T HAVING A VERY POSITIONAL LEFT AC IV. HE HAS BEEN WALKING THE HALLWAYS. NO DIZZINESS. HE HAS NOT HAD A BM IN SEVERAL DAYS. BROUGHT TO DR PAINTING ATTENTION. HE IS PASSING FLATUS. ABD SOFT, MILDLY TENDER RUQ. NO NUASEA. MEDICATED WITH FENTANYL X1 FOR ABD PAIN. CONTINUE POC.
--- NOTE | 2022-05-23 04:22 | NUR ---
BRICK PICKER SUMMARY NO ACUTE EVENTS THROUGHOUT THE NIGHT. A&OX4. PATIENT EFFECTIVELY COMMUNICATES NEEDS. VSS. RR EVEN AND UNLABORED ON RA. LR INFUSING PER EMAR. NO PAIN REPORTED THIS SHIFT, HOWEVER, PATIENT REMAINS NPO. CALL LIGHT WITHIN REACH. BED LOW AND LOCKED. THIS RN WILL CONTINUE TO MONITOR.
--- NOTE | 2022-05-23 18:13 | NUR ---
EVENING NOTE RESTARTED CLEAR LIQUIDS FOR LUNCH TODAY. PT TOLERATED WELL. DENIED NEED FOR PAIN MEDICATION. UP WALKING IN HALLWAY. GAIT STEADY. IVF STOPPED PER ORDER. LUNGS CTA. RA. CONTINUE POC.
--- NOTE | 2022-05-24 04:25 | NUR ---
STRIKE PLATE ATTACHER SUMMARY NO ACUTE EVENTS THROUGHOUT THE NIGHT. A&OX4. VSS. RR EVEN AND UNLABORED ON RA. PATIENT IS TOLERATING CLEAR LIQUID DIET. NO PAIN REPORTED THIS SHIFT. BED LOW AND LOCKED. CALL LIGHT WITHIN REACH. THIS RN WILL CONTINUE TO MONITOR.
[2022-05-24] MEDS ORDERED: DOCU100 PO (14:55)
[2022-05-24] MEDS ORDERED: MIRALAX17 GM PO (14:55)
--- NOTE | 2022-05-24 15:09 | NUR ---
STUDENT SLASH TRIMMER DISCHARGE NOTE PATIENT ADMITTED FOR CONCERNS OF ACUTE PANCREATITIS. PATIENT TOLERATED REGULAR DIET. AMBULATING INDEPENDENTLY IN HIS ROOM. PATIENT REPORTED NOT PAIN THIS SHIFT. PATIENT DISCHARGED HOME.
--- NOTE | 2022-05-24 15:18 | NUR ---
THIS RN AGREES WITH THE NURSING ASSESSMENT AND CHARTING BY AUTOMOBILE CONTRACT CLERK STUDENT.
== END 2022-05-24 15:44 | disposition home or self-care (01) | DRG 440 ==
LOC: ER 09:04 → MEDS 10:49
PROVIDERS: Student in an Organized Health Care Education/Training Program; ADMIT Internal Medicine
DX: K85.90 Acute pancreatitis without necrosis or infection, unspecified (principal); Z28.21 Immunization not carried out because of patient refusal; I10 Essential (primary) hypertension; M10.9 Gout, unspecified; K21.9 Gastro-esophageal reflux disease without esophagitis; D72.828 Other elevated white blood cell count; E78.5 Hyperlipidemia, unspecified; K59.00 Constipation, unspecified; E11.51 Type 2 diabetes mellitus with diabetic peripheral angiopathy without gangrene; Z87.891 Personal history of nicotine dependence; Z85.46 Personal history of malignant neoplasm of prostate; Z79.84 Long term (current) use of oral hypoglycemic drugs; Z79.02 Long term (current) use of antithrombotics/antiplatelets; Z79.899 Other long term (current) drug therapy
CPT/HCPCS: 36415; 76705; 80048; 80053; 80061; 81003; 83690; 84484; 85025; 93005; 93010; 96361; 96374; 96375; 96376; 99285-25; A9270; C1751; J1650; J2405; J3010; J7030; J7120